=== PATIENT | male | born 1965 | race Caucasian/White ===

== ENCOUNTER 2019-11-07 08:30 | Day surgery (SDC) | payer OTHER, BC ==
[~2019-11-07 08:30] MED LIST: Lactated Ringers 1,000 ML IV SCH; Lidocaine 2% 5 ML SDV ONE; Midazolam 1 MG/ML 2 ML SDV ONE; Propofol 200 MG/20 ML SDV ONE; fentaNYL 100 MCG/2 ML SDV ONE
--- NOTE | 2019-11-07 08:54 | PCM.PREANE ---
Preanesthetic Assessment - Anesthesia/Transfusion/Family Hx Anesthesia History: Prior Anesthesia Without Reaction Other Type of Anesthesia Reaction Comment: pt has only had vasectomy in the past , no general anesthesia Family History of Anesthesia Reaction: No Transfusion History: No Prior Transfusion(s) Intubation History: Unknown - Review of Systems General: No Symptoms Pulmonary: No Symptoms Cardiovascular: No Symptoms Gastrointestinal: Other (GERD, diverticulosis, h/o gastric ulcer and IBS) Neurological: No Symptoms Other: Reports: None - Physical Assessment Height: 5 ft 9 in Weight: 80.286 kg ASA Class: 2 Mental Status: Alert & Oriented x3 Airway Class: Mallampati = 2 Dentition: Reports: Normal Dentition Thyro-Mental Finger Breadths: 3 Mouth Opening Finger Breadths: 3 ROM/Head Extension: Full Lungs: Clear to Auscultation, Normal Respiratory Effort Cardiovascular: Regular Rate, Regular Rhythm - Allergies Allergies/Adverse Reactions: Allergies Allergy/AdvReac Type Severity Reaction Status Date / Time No Known Allergies Allergy Verified 11/04/19 11:36 - Blood Blood Available: No - Anesthesia Plan Pre-Op Medication Ordered: None - Acknowledgements Anesthesia Type Planned: MAC Pt an Appropriate Candidate for the Planned Anesthesia: Yes Alternatives and Risks of Anesthesia Discussed w Pt/Guardian: Yes Pt/Guardian Understands and Agrees with Anesthesia Plan: Yes PreAnesthesia Questionnaire - Past Health History Medical/Surgical History: Denies Medical/Surgical History HEENT History: Reports: Other (See Below) Other HEENT History: wears glasses Cardiovascular History: Reports: Hypertension Respiratory History: Reports: None Gastrointestinal History: Reports: Diverticulosis, GERD, Other (See Below) (h/o gastric ulcer and irritable bowel syndrome) Genitourinary History: Reports: None Musculoskeletal History: Reports: None Neurological History: Reports: None Psychiatric History: Reports: None Endocrine/Metabolic History: Reports: None Hematologic History: Reports: None Immunologic History: Reports: None Oncologic (Cancer) History: Reports: None Dermatologic History: Reports: None - Past Surgical History Head Surgeries/Procedures: Reports: None HEENT Surgical History: Reports: None Cardiovascular Surgical History: Reports: None Respiratory Surgical History: Reports: None GI Surgical History: Reports: Colonoscopy ('16 here- diverticulosis) Male Surgical History: Reports: Vasectomy Endocrine Surgical History: Reports: None Neurological Surgical History: Reports: None Musculoskeletal Surgical History: Reports: None Oncologic Surgical History: Reports: None Dermatological Surgical History: Reports: None - SUBSTANCE USE Smoking Status *Q: Former Smoker Tobacco Use Within Last Twelve Months: No - HOME MEDS Home Medications: Home Meds Multivitamin [Multivitamins] 1 tab PO DAILY 10/05/14 [History] Calcium Carbonate [Tums] 1 tab.chew CHEW ASDIRECTED PRN 11/04/19 [History] Fish Oil/[place]-3 Fatty Acids [Fish Oil 1,000 MG] 2 tab PO BID 11/04/19 [History] amLODIPine Besylate [Amlodipine Besylate] 5 mg PO DAILY 11/04/19 [History] - CURRENT (IN HOUSE) MEDS Current Meds: Current Medications Lactated Ringer's (Ringers, Lactated) 1,000 mls @ 125 mls/hr IV ASDIRECTED JUSTYN Discontinued Medications Fentanyl (Sublimaze) Confirm Administered Dose 100 mcg .ROUTE .STK-MED ONE Stop: 11/07/19 08:27 Lidocaine (Xylocaine-Mpf 2%) Confirm Administered Dose 5 ml .ROUTE .STK-MED ONE Stop: 11/07/19 08:27 Midazolam HCl (Versed 1 Mg/Ml) Confirm Administered Dose 2 mg .ROUTE .STK-MED ONE Stop: 11/07/19 08:27 Propofol (Diprivan 20 Ml) Confirm Administered Dose 400 mg .ROUTE .STK-MED ONE Stop: 11/07/19 08:27
--- NOTE | 2019-11-07 10:31 | PCM.OPNOTE ---
- General Post-Op/Procedure Note Date of Surgery/Procedure: 11/07/19 Operative Procedure(s): egd w bx. colonoscopy w bx Findings: see [id number] Pre Op Diagnosis: gerd and positive fam hx of colon ca Post-Op Diagnosis: Same Anesthesia Technique: Moderate Sedation Primary Surgeon: Arnulfo Valenzuela Pathology: egd bx and 4mm sessile polyp at dist 40cm when scope coming out, cold bx forcep removed Complications: None Condition: Good
--- NOTE | 2019-11-07 10:50 | PCM.POSTAN ---
POST ANESTHESIA ASSESSMENT - MENTAL STATUS Mental Status: Alert, Oriented - VITAL SIGNS Vital Signs: Last Vital Signs Temp 36 C L 11/07/19 10:27 Pulse 54 L 11/07/19 10:47 Resp 13 11/07/19 10:47 BP 108/69 11/07/19 10:47 Pulse Ox 98 11/07/19 10:47 - RESPIRATORY Respiratory Status: Respiratory Rate WNL, Airway Patent, O2 Saturation Stable - CARDIOVASCULAR CV Status: Pulse Rate WNL, Blood Pressure Stable - GASTROINTESTINAL GI Status: No Symptoms - PAIN Pain Score: 0 - POST OP HYDRATION Hydration Status: Adequate & Stable - OBSERVATIONS Free Text/Narrative:: No anesthesia problems
[2019-11-07 11:02] VITALS: BP 131/71; PULSE 53
--- NOTE | 2019-11-07 11:19 | PCM48HPAN ---
Post Anesthesia Note - EVALUATION WITHIN 48HRS OF ANESTHETIC Vital Signs in Normal Range: Yes Patient Participated in Evaluation: Yes Respiratory Function Stable: Yes Airway Patent: Yes Cardiovascular Function Stable: Yes Hydration Status Stable: Yes Pain Control Satisfactory: Yes Nausea and Vomiting Control Satisfactory: Yes Mental Status Recovered: Yes Vital Signs: Last Vital Signs Temp 37.1 C 11/07/19 10:55 Pulse 53 L 11/07/19 10:55 Resp 16 11/07/19 10:55 BP 131/71 11/07/19 10:55 Pulse Ox 97 11/07/19 10:55 - COMMENTS/OBSERVATIONS Free Text/Narrative:: No anesthesia problems
--- NOTE | 2019-11-07 16:25 | OR ---
SURGEON: Arnulfo Valenzuela MD DATE OF PROCEDURE: 11/07/2019 PREOPERATIVE DIAGNOSES: Gastroesophageal reflux disease and positive family history. POSTOPERATIVE DIAGNOSES: Gastroesophageal reflux disease and positive family history. PROCEDURES PERFORMED: Esophagogastroduodenoscopy with biopsy and colonoscopy with biopsy. DESCRIPTION OF PROCEDURE: EGD: The patient was taken to the endoscopy room, and with the FIELD COURT RESEARCHER, Diprivan was administered. A well-lubricated EGD scope was gently inserted through the oropharynx, down the esophagus, passing through the gastroesophageal junction, into the stomach. The mucosa was examined upon the passage. Any etiology will be noted. Once in the stomach, we continued to advance to the distal antrum, passed through the pylorus into the second portion of the duodenum. Again, the mucosa was examined for any abnormality and etiology. The scope was then retrieved back to the stomach and then retroflexed to look at the fundus of the stomach. If a biopsy was indicated, we will biopsy the antrum, body, and gastroesophageal junction. The air will be sucked out while the scope is retrieved to reduce the patient's discomfort. The patient tolerated the procedure well. There were no intraoperative complications. Dr. Valenzuela was present through the whole procedure. Prior to surgery, a time-out had been called, the patient identified, procedure identified and antibiotic administered. The patient was taken to the endoscopy room. A time out was called, patient identified, and procedure identified. Diprivan was then administrated. Patient went from awake to sleep, hearing doctor talking or door closing is normal. Perineum inspection and digital examination were then performed. A well- lubricated colonoscope was gently inserted through the rectum, advanced past the rectosigmoid junction, the descending colon, splenic flexure, transverse colon, hepatic flexure, ascending colon, arrived to the cecum. Cecum was identified as dictated in the finding. Then the scope was carefully withdrawn while attention was paid to the mucosal surface for any abnormality. Air will be sucked out during the scope withdrawal. At the rectum, retroflexed to examine any rectal diseases, fistula or hemorrhoids. During mucosal examination, abnormality or polyp was noted; picture taken and biopsy performed. Patient tolerated procedure well. There were no intraoperative complications, and Dr. Valenzuela was present throughout the whole procedure. FINDINGS: EGD findings: 1. The patient is easily sedated with FIELD COURT RESEARCHER and Diprivan, the patient is soundly snoring. 2. Oropharynx and proximal esophagus are free of disease and free of inflammation, stricture, or ulceration, none of those. Distal esophagus at GE junction at 40 shows flame-like structure and with some area that shows almost like a linear ulcer, consistent with erosive esophagitis, need to follow up in 6 months. Stomach rugae are normal in appearance. Antrum looks fine. Duodenum is grossly normal. Retrieved and retroflexed look at the fundus of stomach, there is no hiatal hernia. Biopsy done at antrum, body, GE junction at 40 and sucked out the gas while scope pulling out. During the whole study, there is no blood, bile, or food particle observed. Colonoscopy findings: 1. The patient is easily sedated with FIELD COURT RESEARCHER and Diprivan, the patient is soundly snoring. 2. Bowel prep is a little bit below average, not very bad, but quite a lot of liquid stool and opaque and compromised the study. I was able to irrigate to push it away and was still quite a lot of liquid stool. Colon rather straightforward. Cecum indicated by ileocecal fold, one-to-one indentation, appendiceal orifice, and light emittance. ScopeGuide is pointing south. Mucosa examined upon scope pulling out with some irrigation. The patient has very quite a lot of diverticulosis. They are not big, but tremendous, mainly concentrating in the left colon and a little bit on the right colon and also some scattered in the transverse colon. This has rightfully caused a pancolonic diverticulosis. No signs or symptoms of diverticulitis. No inflammation. There is a small polyp at distance 40 when scope pulling out and about a 4 mm sessile polyp removed with biopsy forceps. The patient has mild internal hemorrhoid. There is no inflammation, stricture, ulceration, AV malformation, bleeding, none of those. Random biopsy done for history of IBD. So the patient had two specimens, one is a random colon biopsy and the other one is a colon polyp. The patient would benefit from repeat colonoscopy 2 to 3 years from now or depends on the pathology of the polyp. FABIAN / HAZEL /[id number]
== END 2019-11-07 11:40 | disposition home or self-care (01) ==
LOC: MW.SDS 08:30
PROVIDERS: ATTEND Surgery
DX: D12.6 Benign neoplasm of colon, unspecified (principal); K57.30 Diverticulosis of large intestine without perforation or abscess without bleeding; K21.9 Gastro-esophageal reflux disease without esophagitis; K64.8 Other hemorrhoids; I10 Essential (primary) hypertension; Z87.19 Personal history of other diseases of the digestive system; Z80.0 Family history of malignant neoplasm of digestive organs; Z87.891 Personal history of nicotine dependence; Z79.899 Other long term (current) drug therapy
CPT/HCPCS: 43239; 45380; J2001; J2250; J2704; J3010; J7120; 00813

== ENCOUNTER 2023-07-09 11:12 | Day surgery (SDC) | payer OTHER, BC ==
[2023-07-09] MEDS: Lactated Ringers 1,000 ML IV SCH (11:35)
[2023-07-09] MEDS ORDERED: Ketorolac 30 MG/ML SDV ONE (12:06)
[2023-07-09] MEDS ORDERED: Ondansetron 4 MG/2 ML SDV ONE (12:06)
[2023-07-09] MEDS ORDERED: Lidocaine 2% 5 ML SDV ONE (12:06)
[2023-07-09] MEDS ORDERED: propofoL 50 ML ONE (12:07)
[2023-07-09] MEDS ORDERED: Lactated Ringers 1,000 ML IV SCH (13:30)
[2023-07-09 13:43] VITALS: BP 154/60; PULSE 49
== END 2023-07-09 13:50 | disposition home or self-care (01) ==
LOC: MW.SDS 11:12
PROVIDERS: ATTEND Surgery
DX: D12.2 Benign neoplasm of ascending colon (principal); D12.8 Benign neoplasm of rectum; K31.89 Other diseases of stomach and duodenum; K57.30 Diverticulosis of large intestine without perforation or abscess without bleeding; K29.50 Unspecified chronic gastritis without bleeding; K44.9 Diaphragmatic hernia without obstruction or gangrene; K21.9 Gastro-esophageal reflux disease without esophagitis; I10 Essential (primary) hypertension; Z98.890 Other specified postprocedural states; Z79.899 Other long term (current) drug therapy; Z87.891 Personal history of nicotine dependence; Z80.0 Family history of malignant neoplasm of digestive organs
CPT/HCPCS: 43239; 45380; 88305; J1885; J2405; J2704; J7120; 00813; J3490

== ENCOUNTER 2023-11-11 11:43 | Emergency (ER) | payer OTHER, BC ==
[2023-11-11 12:08] LABS: BASOPHILS ABSOLUTE AUTO 0.04 K/uL (0.00-0.20); BASOPHILS PERCENT AUTO 0.7 % (0.0-1.0); EOSINOPHILS ABSOLUTE AUTO 0.04 K/uL (0.00-0.45); EOSINOPHILS PERCENT AUTO 0.7 % (0.0-6.0); HEMATOCRIT 39.9 % (42.0-52.0); HEMOGLOBIN 14.3 g/dL (14.0-18.0); IMMATURE GRAN ABSOLUTE AUTO 0.02 K/uL (0.00-0.05); IMMATURE GRAN PERCENT AUTO 0.3 % (0.0-0.4); LYMPHOCYTES ABSOLUTE AUTO 1.78 K/uL (1.00-4.80); LYMPHOCYTES PERCENT AUTO 30.3 % (24.0-44.0); MEAN CORPUSCULAR HEMOGLOBIN 33.3 pg (28.0-32.0); MEAN CORPUSCULAR HGB CONC 35.8 g/dL (32.0-36.0); MEAN PLATELET VOLUME 9.1 fL (9.4-12.4); MONOCYTES ABSOLUTE AUTO 0.57 K/uL (0.00-0.80); MONOCYTES PERCENT AUTO 9.7 % (0.0-8.0); NEUTROPHILS ABSOLUTE AUTO 3.42 K/uL (1.80-7.70); NEUTROPHILS PERCENT AUTO 58.3 % (41.0-71.0); PLATELET COUNT,PLT 225 K/uL (150-400); RED BLOOD CELL COUNT 4.29 M/uL (4.52-5.90); WHITE BLOOD CELL COUNT,WBC 5.87 K/uL (3.9-11.3)
[2023-11-11 12:30] LABS: A/G RATIO 0.8 (0.9-1.6); ALBUMIN 2.8 g/dL (3.4-5.0); BILIRUBIN TOTAL 0.7 mg/dL (0.2-1.0); CALCIUM 8.1 mg/dL (8.5-10.1); CARBON DIOXIDE,CO2 23.3 mmol/L (21.0-32.0); CREATININE 0.9 mg/dL (0.8-1.3); EST CRCL DRUG DOSING (CG) 88.38 mL/min; POTASSIUM,K 3.8 mmol/L (3.5-5.1); PROTEIN TOTAL,TP 6.4 g/dL (6.4-8.2)
[2023-11-11 13:29] VITALS: BP 136/95; PULSE 79
== END 2023-11-11 13:27 | disposition home or self-care (01) ==
LOC: MW.ED 11:43
DX: K92.1 Melena (principal); I10 Essential (primary) hypertension; Z86.16 Personal history of COVID-19; Z87.891 Personal history of nicotine dependence; Z79.899 Other long term (current) drug therapy
CPT/HCPCS: 36415; 80053; 85025; 99282; 99284